=== PATIENT | female | born 1970 | race Caucasian/White ===

== ENCOUNTER 2021-08-26 21:32 | Emergency (ER) | payer OTHER ==
[~2021-08-26] VITALS: Ht 167.6 cm; Wt 84.4 kg
--- NOTE | 2021-08-26 21:50 | NUR ---
BIBDAUGHTER C/O L SHOULDER PAIN RADIATING DOWN TO ARM. +BACK PAIN SEEN BY URGENT CARE WAS TOLD NO RELIEF. PLACED COMFORTABLY IN BED. VITALS CHECKED.
[2021-08-26] MEDS ORDERED: LIDOCAINE 5% (PATCH) 1 EA PATCH TP SCH (22:00)
[2021-08-26] MEDS ORDERED: KETOROLAC TROMETHAMINE INJ 60 MG/2 ML VIAL IM ONE (22:00)
--- NOTE | 2021-08-26 22:18 | NUR ---
PATIENT WHEELED TO CT DEPT
[2021-08-26] MEDS ORDERED: KETOROLAC TROMETHAMINE 15 MG/ML VIAL ONE (22:46)
[2021-08-26] MEDS ORDERED: LIDOCAINE 5% (PATCH) 1 EA PATCH TP ONE (23:04)
[2021-08-26] MEDS ORDERED: LIDO700A30 TP (23:39)
[2021-08-26] MEDS ORDERED: NAPR500T6 PO (23:39)
[2021-08-26 23:49] VITALS: BP 133/81
--- NOTE | 2021-08-26 23:49 | NUR ---
Patient discharged to home in stable condition. Written and verbal after care instructions given. Patient verbalizes understanding of instruction.
== END 2021-08-26 23:50 | disposition home or self-care (01) ==
LOC: ER 21:39
DX: S16.1XXA Strain of muscle, fascia and tendon at neck level, initial encounter (principal); I10 Essential (primary) hypertension; Z79.899 Other long term (current) drug therapy; W01.0XXA Fall on same level from slipping, tripping and stumbling without subsequent striking against object, initial encounter; Y93.89 Activity, other specified; Y92.89 Other specified places as the place of occurrence of the external cause; Y99.8 Other external cause status
CPT/HCPCS: 72125; 96372; 99284; J1885

== ENCOUNTER 2021-09-02 01:08 | Emergency (ER) | payer OTHER ==
[~2021-09-02] VITALS: Ht 170.2 cm; Wt 74.8 kg
[~2021-09-02 01:08] MED LIST: LIDO700A30 TP; NAPR500T6 PO
--- NOTE | 2021-09-02 01:30 | NUR ---
TO ER BED 19. BIBDAUGHTER FOR "SWALLOWING TOOTH, FEELS LIKE ITS STUCK IN THROAT". PT IS ALERT AND ORIENTED. AMBULATORY WITH STEADY GAIT. BREATHING IS EVEN AND NONLABORED. CONNECTED TO MONITOR. AWAITNG MD ORDERS
--- NOTE | 2021-09-02 01:41 | NUR ---
PT TAKEN FOR CT SCAN
--- NOTE | 2021-09-02 05:22 | NUR ---
Patient discharged to home in stable condition. Written and verbal after care instructions given. Patient verbalizes understanding of instruction.
[2021-09-02 05:23] VITALS: BP 158/94
== END 2021-09-02 05:23 | disposition home or self-care (01) ==
LOC: ER 01:09
DX: R09.89 Other specified symptoms and signs involving the circulatory and respiratory systems (principal); I10 Essential (primary) hypertension; Z79.899 Other long term (current) drug therapy
CPT/HCPCS: 70490-TC